=== PATIENT | female | born 1985 | race Caucasian/White ===

== ENCOUNTER → 2017-02-26 | Outpatient (CLI) | payer BC | END | disposition home or self-care (01) | LOC: NUC 06:50 | DX: R11.2 Nausea with vomiting, unspecified (principal) | CPT/HCPCS: 78264; A9541 ==

== ENCOUNTER 2017-03-14 09:43 | Emergency (ER) | payer BC ==
[~2017-03-14] VITALS: Ht 160 cm; Wt 93.2 kg
[2017-03-14 11:02] LABS: BASOPHIL (%) 0 % (0-1); EOSINOPHIL (%) 1.8 % (0-5); EOSINOPHIL COUNT 0.1 K/uL (0-0.3); HEMATOCRIT 37.3 % (36.0-46.0); HEMOGLOBIN 12.2 G/DL (11.9-15.5); IMMATURE GRANULOCYTE (%) 0.2 % (0.0-0.7); LYMPHOCYTE (%) 13.4 % (15-42); LYMPHOCYTE COUNT 0.6 K/uL (1.0-2.8); MCH 29.3 PG (29.0-34.0); MCHC 32.7 G/DL (30.0-36.0); MCV 89.7 FL (83-99); MONOCYTE (%) 6.1 % (3-12); MONOCYTE COUNT 0.3 K/uL (0-0.8); NEUTROPHIL (%) 78.5 % (45-76); NEUTROPHIL COUNT 3.6 K/uL (1.8-6.4); PLATELET COUNT 203 K/uL (156-360); RBC DIS.WIDTH-CV 13.6 % (11.8-14.6); RBC DIS.WIDTH-SD 44.5 % (39-53); RED BLOOD COUNT 4.16 M/uL (3.80-5.20); WHITE BLOOD COUNT 4.6 K/uL (4.1-10.2)
[2017-03-14 11:03] LABS: CARBON DIOXIDE (BICARBONATE) 26.8 MEQ/L (20-31)
[2017-03-14 11:13] LABS: CHLORIDE 107 mEq/L (99-109); POTASSIUM 4.2 mEq/L (3.7-5.4); SODIUM 136 mEq/L (136-147)
[2017-03-14 11:14] LABS: GLUCOSE 226 mg/dL (70-99)
[2017-03-14 11:18] LABS: CREATININE 0.7 mg/dL (0.6-1.3); GFR ESTIMATE (CALCULATED) > 59 mL/min/
[2017-03-14 11:19] LABS: UREA NITROGEN (BUN) 7 mg/dL (9-23)
[2017-03-14 13:28] LABS: APPEARANCE CLOUDY ((CLEAR)); BILIRUBIN NEGATIVE; BLOOD NEGATIVE; COLOR YELLOW ((YELLOW)); GLUCOSE (STRIP) 50; KETONES 5; LEUKOCYTES NEGATIVE; NITRITE NEGATIVE; PROTEIN (STRIP) NEGATIVE; SPECIFIC GRAVITY 1.009 (1.000-1.030); UROBILINOGEN 0.2 MG/DL (0.2-1.0)
[2017-03-14 13:38] LABS: BACTERIA 2+ /HPF; CALCIUM OXALATE CRYSTALS 2+ /HPF; EPITHELIAL CELLS 4+ /HPF; HYALINE CASTS 0-5 /LPF; MUCUS 4+ /LPF; RED BLOOD CELLS 0-5 /HPF (0-5); UCUL ADDED? YES; WHITE BLOOD CELLS 0-5 /HPF (0-5)
[2017-03-14] MEDS ORDERED: IMODIUM A-D2 M2 PO (14:51)
[2017-03-14] MEDS ORDERED: ZOFRAN4 MG PO (14:51)
[2017-03-14 15:23] VITALS: BP 128/72
== END 2017-03-14 15:23 | disposition home or self-care (01) ==
LOC: EME 09:43
PROVIDERS: Emergency Medicine
DX: R11.2 Nausea with vomiting, unspecified (principal); R19.7 Diarrhea, unspecified; E86.0 Dehydration; E11.9 Type 2 diabetes mellitus without complications; Z79.4 Long term (current) use of insulin; F41.9 Anxiety disorder, unspecified
CPT/HCPCS: 80048; 81003; 82010; 82803; 82948; 85025; 87086; 99281; 99285; J2405; J7030

== ENCOUNTER 2017-03-15 20:20 | Emergency (ER) | payer BC ==
[~2017-03-15] VITALS: Ht 160 cm; Wt 94.8 kg
[~2017-03-15 20:20] MED LIST: IMODIUM A-D2 M2 PO; ZOFRAN4 MG PO
[2017-03-15 20:43] LABS: HEMOGLOBIN 12.3 G/DL (11.9-15.5); MCH 29.7 PG (29.0-34.0); MCHC 33.2 G/DL (30.0-36.0); MCV 89.4 FL (83-99); RBC DIS.WIDTH-CV 13.6 % (11.8-14.6); RBC DIS.WIDTH-SD 44.7 % (39-53); RED BLOOD COUNT 4.14 M/uL (3.80-5.20); WHITE BLOOD COUNT 5.1 K/uL (4.1-10.2)
[2017-03-15 20:52] LABS: ALBUMIN 3.7 g/dL (3.2-4.8); CHLORIDE 116 mEq/L (99-109); PLATELET COUNT 283 K/uL (156-360); POTASSIUM 3.7 mEq/L (3.7-5.4)
[2017-03-15 20:53] LABS: SODIUM 145 mEq/L (136-147)
[2017-03-15 20:54] LABS: GLUCOSE 216 mg/dL (70-99); TOTAL PROTEIN 6.7 g/dL (6.4-8.3)
[2017-03-15 20:56] LABS: TOTAL BILIRUBIN 0.2 mg/dL (0.0-1.0)
[2017-03-15 20:58] LABS: ALKALINE PHOSPHATASE 66 IU/L (3-129); CREATININE 0.7 mg/dL (0.6-1.3); GFR ESTIMATE (CALCULATED) > 59 mL/min/
[2017-03-15 20:59] LABS: AST (GOT) 21 IU/L (2-34); UREA NITROGEN (BUN) 4 mg/dL (9-23)
[2017-03-15 21:01] LABS: ALT (GPT) 13 IU/L (3-49)
[2017-03-15 21:08] LABS: QUANTITATIVE HCG < 4.0 MIU/ML
[2017-03-15 23:04] LABS: C DIFF TOXIN NEGATIVE (NEGATIVE)
[2017-03-16 00:01] LABS: APPEARANCE CLEAR ((CLEAR)); BILIRUBIN NEGATIVE; BLOOD NEGATIVE; COLOR STRAW ((YELLOW)); GLUCOSE (STRIP) >=500; KETONES NEGATIVE; LEUKOCYTES NEGATIVE; NITRITE NEGATIVE; PROTEIN (STRIP) NEGATIVE; SPECIFIC GRAVITY 1.007 (1.000-1.030); UCUL ADDED? NO; UROBILINOGEN 0.2 MG/DL (0.2-1.0)
[2017-03-16] MEDS ORDERED: ZOFRAN ODT4 MG PO (00:46)
[2017-03-16 02:10] VITALS: BP 132/79
== END 2017-03-16 02:11 | disposition home or self-care (01) ==
LOC: EME 20:20
PROVIDERS: Physician Assistant
DX: R11.2 Nausea with vomiting, unspecified (principal); R19.7 Diarrhea, unspecified; E11.9 Type 2 diabetes mellitus without complications; F41.9 Anxiety disorder, unspecified; Z96.41 Presence of insulin pump (external) (internal); Z87.440 Personal history of urinary (tract) infections
CPT/HCPCS: 80053; 81003; 82948; 84702; 85027; 87493; 99281; 99284; J7030